=== PATIENT | female | born 1955 | race Hispanic/Latino ===

== ENCOUNTER 2019-01-28 14:55 | Inpatient (IN) | payer OTHER ==
[~2019-01-28] VITALS: Ht 154.9 cm; Wt 96.2 kg
--- NOTE | 2019-01-28 00:10 | NUR ---
PATIENT RECIEVED TO FLOOR WITH BP OF 201/86 AND COMPLAINING OF PAIN TO UPPER LIP AND HEADACHE. ADMINISTERED 2MG OF MORPHINE PER PRN ORDER AND AFTER 20 MINUTES BP STILL NOT DECEREASED CALLED DR FAJARDO TO GET PRN ORDER FOR BP MED, ADMINISTERED HYDRALAZINE 5MG AT 0105 AND BP DECREASED TO 191/81. PRN ORDER FOR Q1H MEDICATION, WILL CONTINUE TO MONITOR BP.
[~2019-01-28 14:55] MED LIST: AMITRIPTYLINE H25 MG PO; ATROVENT HFA12.9 GM INH; FUROSEMIDE40 MG PO; HUMALOG100 UNIT/1 SUBD; Invokana PO; LANTUS 3ML100 UNITS/ SQ; LISINOPRIL10 MG PO; LOVASTATIN40 MG PO; LYRICA75 MG PO; METFORMIN HCL500 MG PO; NIFEDIPINE ER30 M1 PO; NOVOLOG MI100 UNIT/1 SQ; TROUJEO SQ
--- OUTSIDE RECORDS SUMMARY | 2019-01-28 14:58 | XMS REPORT ---
[facility] Address Unknown Phone Unavailable Care Team Providers Care Attorney Recruiter Name Role Phone Unavailable Unavailable Payers Payer Name Policy Type Policy Number Effective Date Expiration Date Problems This patient has no known problems. Allergies, Adverse Reactions, Alerts Allergy Name Allergy Type Status Severity Reaction(s) Onset Date Inactive Date Treating Clinician Comments No Known Allergies DA Active U 2018-06-16 00:00:00 atorvastatin DA Active MO 2015-06-10 00:00:00 Medications This patient has no known medications.
[2019-01-28] MEDS ORDERED: SODIUM CHLORIDE 0.9% 1000ML 1,000 ML IV STA (18:14)
[2019-01-28] MEDS ORDERED: MORPHINE SULFATE 2 MG/ML SYR 1ML IV STA ×2 (18:14→21:54)
[2019-01-28] MEDS ORDERED: SODIUM CHLORIDE 0.9% 1000ML 1,000 ML IV SCH (18:15)
[2019-01-28] MEDS ORDERED: MORPHINE SULFATE INJ 4 MG/ML INJ 1ML IV ONE ×2 (18:30→22:00)
[2019-01-28] MEDS ORDERED: VANCOMYCIN 1GM/NS 250 ML 250 ML IV ONE (18:30)
[2019-01-28 18:50] LABS: BASOPHILS # (AUTO) 0.1 (0.0-0.1); BASOPHILS % 0.4 % (0.0-1.0); EOSINOPHILS # (AUTO) 0.1 (0.0-0.4); EOSINOPHILS % 0.7 % (0.0-6.0); HEMATOCRIT 38.9 % (34.2-44.1); HEMOGLOBIN 12.1 g/dL (12.0-16.0); LYMPHOCYTES # (AUTO) 1.6 (1.0-3.2); LYMPHOCYTES % 10.8 % (18.0-39.1); MEAN CORPUSCULAR HGB CONC 31.1 g/dL (31-35); MEAN CORPUSCULAR VOLUME 83.5 fL (81-99); MONOCYTES # (AUTO) 0.9 (0.2-0.8); MONOCYTES % 5.9 % (4.4-11.3); NEUTROPHILS # (AUTO) 12.2 (2.1-6.9); NEUTROPHILS % 81.7 % (38.7-80.0); PLATELET COUNT 375 x10e3/uL (140-360); RED BLOOD COUNT 4.66 x10e6/uL (3.6-5.1); RED CELL DISTRIBUTION WIDTH 15.9 % (11.7-14.4)
[2019-01-28 18:57] LABS: INR 1.06; PROTHROMBIN TIME 14.3 seconds (11.9-14.5)
[2019-01-28 18:58] LABS: PARTIAL THROMBOPLASTIN TIME 38.7 seconds (23.8-35.5)
[2019-01-28 19:05] LABS: ALBUMIN 2.2 g/dL (3.5-5.0); ALBUMIN/GLOBULIN RATIO 0.4 (0.8-2.0); ANION GAP 15.8 mmol/L (8-16); CALCIUM 9.9 mg/dL (8.4-10.2); CREATININE, SERUM 2.36 mg/dL (0.57-1.11); MAGNESIUM 1.8 MG/DL (1.3-2.1); POTASSIUM 4.8 mmol/L (3.5-5.1)
[2019-01-28 19:12] LABS: CREATINE KINASE MB 1.6 ng/mL (0-5.0)
--- NOTE | 2019-01-28 19:43 | Diagnostic Imaging Report ---
EXAMINATION: Head CT without contrast. HISTORY:Dizziness, status post fall. COMPARISON:None. TECHNIQUE: Multidetector axial images were obtained from the foramen magnum to the vertex without contrast. The images were reconstructed using brain and bone algorithms. Thin section brain images were reformatted into coronal and sagittal planes. Dose modulation, iterative reconstruction, and/or weight based adjustment of the mA/kV was utilized to reduce the radiation dose to as low as reasonably achievable. Intravenous contrast: None IMAGE QUALITY: Acceptable. FINDINGS: Skull/scalp: No lytic or blastic. lesions. No surgical changes. Parenchyma: Nonspecific few, scattered supratentorial white matter hypodensity are likely related to small vessel ischemic changes. No acute hemorrhage, mass or acute major vascular territorial infarct. Arteries: No density suggestive of thrombosis. Atherosclerotic calcification in bilateral carotid siphon. Dural sinuses: No abnormal density suggestive of thrombosis. Ventricles: No hydrocephalus or displacement. Extra-axial spaces: No abnormal density. Brain volume: Normal for age. Craniocervical junction: No mass, Chiari malformation, or basilar invagination. Sella: No mass. Paranasal/mastoid sinuses: Moderate mucosal thickening in left sphenoid sinus. IMPRESSION: 1. No acute intracranial abnormality. 2. Mild supratentorial white matter microvascular ischemic changes. Signed by: Dr. Senia Mcginnis M.D. on 01/28/2019 7:40 PM
--- NOTE | 2019-01-28 19:49 | Diagnostic Imaging Report ---
History: Dizziness, status post fall. Comparison studies: None Technique: Axial images were obtained through the cervical region.. Coronal and sagittal images reconstructed from the axial data. Dose modulation, iterative reconstruction, and/or weight based adjustment of the mA/kV was utilized to reduce the radiation dose to as low as reasonably achievable. Intravenous contrast: None Findings: Fractures: None. Soft tissue injuries: None. Atlantoaxial articulation: Intact. Alignment: Loss of normal cervical lordosis is either positional or due to muscle spasm. No scoliosis. 1.5 mm grade 1 anterolisthesis at level C5-C6. Cervicomedullary junction: No abnormalities. The foramen magnum is patent. Soft tissues: No abnormalities. Vertebrae: No fractures, infection or neoplasm. Degenerative changes: C3-C4: Mild degenerative disc disease. Posterior disc osteophyte complex results in mild canal stenosis. Mild left foraminal stenosis due to facet and uncovertebral arthrosis. C4-C5: Mild bilateral foraminal stenosis due to uncovertebral arthrosis. C5-C6: Mild right foraminal stenosis due to uncovertebral arthrosis. C6-C7: Mild to moderate degenerative disc disease. Moderate left foraminal stenosis due to facet and uncovertebral arthrosis. IMPRESSION: 1. No acute cervical spine fracture or dislocation. Loss of normal cervical lordosis is either positional or due to muscle spasm. 2. Ligament, spinal cord and or vascular abnormalities cannot be excluded on the basis of this examination. 3. Cervical spondylosis as detailed above. Signed by: Dr. Senia Mcginnis M.D. on 01/28/2019 7:45 PM
--- NOTE | 2019-01-28 19:52 | Diagnostic Imaging Report ---
EXAMINATION: CHEST SINGLE (PORTABLE) INDICATION: Fall. Trauma ^ERMD ORDER ^[id number] ^1900 ^Y COMPARISON: None FINDINGS: TUBES and LINES: None. LUNGS: Lungs are well inflated. Lungs are clear. There is no evidence of pneumonia or pulmonary edema. PLEURA: No pleural effusion or pneumothorax. HEART AND MEDIASTINUM: The cardiomediastinal silhouette is unremarkable. BONES AND SOFT TISSUES: No acute osseous lesion. Soft tissues are unremarkable. UPPER ABDOMEN: No free air under the diaphragm. IMPRESSION: No acute thoracic abnormality. Signed by: Dr. Pb Boggs M.D. on 01/28/2019 7:48 PM
--- NOTE | 2019-01-28 19:57 | Diagnostic Imaging Report ---
History:Dizziness, status post fall. Comparison studies: None Technique: Axial images were obtained through the maxillofacial region. Coronal and sagittal images reconstructed from the axial data. Dose modulation, iterative reconstruction, and/or weight based adjustment of the mA/kV was utilized to reduce the radiation dose to as low as reasonably achievable. Intravenous contrast: None Findings: Soft tissues: Moderate soft tissue swelling in the premaxillary region and the upper lip. No discrete hypodense fluid collection. Punctate radiopaque density in the left paramedian aspect of lower lip may represent foreign body/debris or calcification in appropriate clinical setting. Bones: No fractures or bony abnormalities. Multiple missing teeth with multifocal periapical lucency and periapical osseous disruption, the activity of which is to be determined clinically. No discrete fracture of the teeth. Orbits: Globes: Intact Extra or intraconal abnormalities: None. Paranasal sinuses: Moderate mucosal thickening with an air-fluid level in left sphenoid sinus. IMPRESSION: 1. Moderate premaxillary region and upper lip soft tissue swelling. 2. Punctate radiopaque foreign body/debris or calcification in the lower lip. 3. No acute fracture. Signed by: Dr. Senia Mcginnis M.D. on 01/28/2019 7:54 PM
[2019-01-28 20:13] LABS: BILIRUBIN,URINE SMALL (NEGATIVE); CLARITY,URINE CLOUDY (CLEAR); COLOR,URINE YELLOW (YELLOW); KETONES,URINE TRACE (NEGATIVE); LEUKOCYTE ESTERASE ,URINE NEGATIVE (NEGATIVE); NITRITE,URINE NEGATIVE (NEGATIVE); URINE UROBILINOGEN 0.2 mg/dL (0.2 - 1)
[2019-01-28 20:19] LABS: PROTEIN,URINE DIPSTICK 2+ (NEGATIVE)
[2019-01-28 20:24] LABS: AMORPHOUS SEDIMENT,URINE MODERATE (FEW); BACTERIA,URINE MODERATE /HPF; EPITHELIAL CELLS,URINE FEW /LPF
[2019-01-28 20:31] LABS: B-TYPE NATRIURETIC PEPTIDE2 134.1 pg/mL (0-100)
[2019-01-28] MEDS ORDERED: CLONIDINE HCL0.2 MG PO (21:45)
[2019-01-28] MEDS ORDERED: METOPROLOL TART50 MG PO (21:45)
[2019-01-28] MEDS ORDERED: LEVOTHYROXINE50 MCG PO (21:45)
[2019-01-28] MEDS ORDERED: GABAPENTIN400 MG PO (21:45)
[2019-01-28] MEDS ORDERED: FUROSEMIDE40 MG PO (21:47)
[2019-01-28] MEDS: CLONIDINE HCL 0.2 MG TAB PO SCH (21:57)
[2019-01-28] MEDS: METOPROLOL TARTRATE 50 MG TAB PO SCH (21:57)
[2019-01-28] MEDS ORDERED: DEXTROSE 50% SYRINGE 50 ML IV PRN (22:30)
[2019-01-28] MEDS ORDERED: ONDANSETRON HCL INJ 2MG/ML 2ML 2 MG/ML VIAL IV PRN (22:30)
[2019-01-28] MEDS: SODIUM CHLORIDE 0.9% 1000ML 1,000 ML IV SCH (23:37)
[2019-01-29] VITALS (11 sets, daily range): BP systolic 116–189; BP diastolic 50–89
[2019-01-29] MEDS: MORPHINE SULFATE INJ 4 MG/ML INJ 1ML IV PRN ×2 (00:15→14:29)
[2019-01-29] MEDS ORDERED: HYDRALAZINE HCL 20 MG/ML VIAL IV STA (00:41)
[2019-01-29] MEDS ORDERED: HYDRALAZINE HCL 20 MG/ML VIAL ONE (00:47)
[2019-01-29] MEDS: SODIUM CHLORIDE 0.9% 1000ML 1,000 ML IV SCH ×3 (01:02→22:28)
[2019-01-29 05:35] LABS: CREATINE KINASE MB 1.9 ng/mL (0-5.0)
[2019-01-29] MEDS: CLONIDINE HCL 0.2 MG TAB PO SCH ×3 (08:28→20:42)
[2019-01-29] MEDS: METOPROLOL TARTRATE 50 MG TAB PO SCH ×2 (08:28→17:32)
[2019-01-29] MEDS: INSULIN REGULAR, HUMAN 100 UNIT/1 ML 3ML VIAL SQ SCH ×4 (08:29→20:42)
--- NOTE | 2019-01-29 13:02 | History and Physical ---
REPORT TITLE: Admitting History and Physical REASON FOR ADMISSION: Ms. Garay is a complex 64-year-old obese, diabetic, who presents to the emergency room with a complaint of facial pain and swelling. HISTORY OF PRESENT ILLNESS: The patient reports she fell down 5 days ago and remembers striking her face on the floor. She reports the fingerstick blood sugar at that time was 498. She denies any chest pain, palpitations, and does not believe she has had elena syncope at any time. PAST MEDICAL HISTORY: Significant for longstanding diabetes for approximately 15 years. She has taken oral medications and more recently injection. She was hospitalized at [facility] in 2016 with necrotic right third toe. She thinks it was insect bite, it was amputated with no further problems. She has had long-standing diabetic neuropathy. She had cholecystectomy in 2012 and endoscopies in 2017. MEDICATIONS: Recent home medications include Toujeo 65 units each morning, metoprolol tartrate 50 mg b.i.d., lovastatin 40 mg daily, lisinopril 40 mg daily, levothyroxine 50 mcg daily, NovoLog 70/30 15 units twice a day, gabapentin 400 mg b.i.d., furosemide 40 mg daily, clonidine 0.2 mg t.i.d., and amitriptyline 25 mg daily. 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 PHYSICAL EXAMINATION: GENERAL: At this time shows a pleasant obese woman, who is about 5 feet 1 inch tall, weighing 212 pounds. VITAL SIGNS: Her current blood pressure 165/80. HEAD, EYES, EARS, NOSE, and throat: Shows swelling of the upper lip with minimal erythema. NECK: Thick. No bruits. THORAX: Heart sounds S1, S2 are equal. No murmurs. LUNGS: Clear. ABDOMEN: Markedly protuberant. Normal bowel sounds. Nontender. EXTREMITIES: She has no cyanosis, clubbing, or edema. The right foot is missing the middle toe, but all the other toes are unremarkable as is the left foot. ADMITTING LABORATORY STUDIES: Show sodium 134, potassium 4.8, chloride 100, bicarb 23, BUN 34, creatinine 2.36, and glucose 306. White count 14.9. ASSESSMENT: 1. Edema and cellulitis of the face. 2. Uncontrolled diabetes. 3. Renal insufficiency, some component could be dehydration. 4. Morbid obesity. PLAN: The patient has already been given one dose of vancomycin, and we will continue IV fluids for dehydration component. We will ask for Infectious Disease evaluation and case management assistance in helping her to get medications at reasonable cost for her. Further management based on clinical course. MD ALEJANDRO Mancilla/MODL /[id number] cc: MD Oli Singer MD
--- NOTE | 2019-01-29 14:10 | NUR ---
PAST MEDICAL HISTORY: Significant for longstanding diabetes for approximately 15 years. She has taken oral medications and more recently injection. She was hospitalized at [facility] in 2016 with necrotic right third toe. She thinks it was insect bite, it was amputated with no further problems. She has had long-standing diabetic neuropathy. She had cholecystectomy in 2013 and endoscopies in 2017. MEDICATIONS: Recent home medications include Toujeo 65 units each morning, metoprolol tartrate 50 mg b.i.d., lovastatin 40 mg daily, lisinopril 40 mg daily, levothyroxine 50 mcg daily, NovoLog 70/30 15 units twice a day, gabapentin 400 mg b.i.d., furosemide 40 mg daily, clonidine 0.2 mg t.i.d., and amitriptyline 25 mg daily. 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 [id number]
[2019-01-29] MEDS: FUROSEMIDE 40 MG TAB PO SCH (14:27)
[2019-01-29] MEDS: AMITRIPTYLINE HCL 25 MG TAB PO SCH (14:27)
[2019-01-29 14:30] LABS: CREATINE KINASE MB 2.1 ng/mL (0-5.0)
--- NOTE | 2019-01-29 15:22 | History and Physical ---
REASON FOR CONSULTATION: Upper lip abscess. HISTORY OF PRESENT ILLNESS: This patient is very pleasant 64-year-old female. She fell about a week ago and she had a cut on her upper lip. The patient who does have history of diabetes mellitus and obesity. She does have swelling in her lip with pain, feeling feverish, the patient in the emergency room where she was admitted and evaluated. PAST MEDICAL HISTORY: Diabetes mellitus, obesity, hypertension, hypothyroidism, and neuropathy. PAST SURGICAL HISTORY: She had necrotic right 3rd toe amputated, cholecystectomy in 2013, endoscopy in 2017. ALLERGIES: NKA. SOCIAL HISTORY: There is no smoking, drug abuse, or alcohol abuse. 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 HOME MEDICATIONS: She is on: 1. Lisinopril. 2. Lovastatin. 3. Insulin. 4. Clonidine. 5. Amitriptyline. REVIEW OF SYSTEMS: HEENT: There is no headache, visual changes, or hearing changes. GI: There is no nausea, no vomiting, no diarrhea. CARDIAC: There is no arrhythmia. NEURO: No seizure activity. SKIN: There is no rash. Except for the pain in her mouth, she denies any. PHYSICAL EXAMINATION: GENERAL: She is currently alert, oriented, does not seem to be in acute distress. VITAL SIGNS: Stable. Currently afebrile. HEENT: Normocephalic. Not icteric. She did have upper lip swelling. There is some ulcers noted on the anterior aspect of her mouth. NECK: Supple. No JVD. No lymphadenopathy. No thyromegaly. CHEST: Clear bilateral. HEART: S1, S2. No S3, S4 or murmur. ABDOMEN: Soft. Bowel sounds present. EXTREMITIES: No edema. SKIN: No rash. IMPRESSION: 1. Upper lip abscess with infection. The patient with diabetes mellitus. 2. Diabetes mellitus. 3. Obesity. PLAN: We are concerned about oral roberth, infection. We will recommend to put her on Zosyn. May need ENT evaluation. May need I and D. We will follow with you. Discussed with the patient. MD GALE Singer/ISRAEL /[id number]
--- NOTE | 2019-01-29 16:38 | NUR ---
PT STATES SHE GOES TO [facility] IN [place] FOR HER DIABETIC MEDICATIONS CM CALLED AND SPOKE WITH ALEJANDRA AT [facility] WHO STATES PT COMES THERE FOR HER MEDICATIONS AND DR BERRY IS HER PCP ACCORDING TO PT RECORDS PT HAS NOT BEEN THERE SINCE JULY OF 2018
[2019-01-29] MEDS: GABAPENTIN 400 MG CAP PO SCH (17:32)
[2019-01-29] MEDS: PIPER-TAZ 3.375 GM 50 ML IV SCH (17:32)
[2019-01-29] MEDS: INSULIN ASPART 70/30 100 UNITS/ML VIAL SC SCH (17:33)
[2019-01-29] MEDS: SIMVASTATIN 20 MG TAB PO SCH (20:42)
--- NOTE | 2019-01-29 21:22 | NUR ---
Paged to inform lab results, waiting for MD's call back.
--- NOTE | 2019-01-29 22:35 | NUR ---
Paged to inform lab results, waiting for MD's call back at this time.
--- NOTE | 2019-01-29 22:48 | Consultation ---
DATE OF CONSULTATION: 01/29/2019 HISTORY OF PRESENT ILLNESS: I was kindly asked to see this 64-year-old woman for evaluation of "lip abscess." The patient presented with a history of falling face forward onto the floor and suffering a laceration in her upper lip from her tooth. She reports she felt the tooth moved and the tooth continues to be sore. The patient had swelling of the upper lip, which progressed to swelling of both upper and lower lips as well as pain radiating into her face. She reports since admission she has had no significant improvement in the pain and swelling. PAST MEDICAL HISTORY: Pertinent for diabetes and obesity. PAST SURGICAL HISTORY: Reviewed in detail in the chart. PHYSICAL EXAMINATION: The tympanic membranes and external auditory canals were unremarkable. Intranasal examination was unremarkable. She had diffuse swelling below the nose. The upper lip had a laceration next to the incisor tooth and there was generalized swelling of the upper lip, but no areas of fluctuance were noted. The lower lip was also swollen. She had poor dentition with multiple dental caries. There was no palpable cervical adenopathy. LABORATORY DATA: Initial laboratory evaluation was reviewed in detail is pertinent for glucose of 306 and white count of 14.9. ASSESSMENT: 1. Posttraumatic lip cellulitis with open laceration from carious tooth with no areas of fluctuance on examination. 2. Diabetes mellitus. 3. Obesity. PLAN: Continue IV antibiotic therapy with consideration of incision and drainage based on clinical course. Thank you very much. MD DEONTE Davidson/ISRAEL /[id number]
[2019-01-30] VITALS (10 sets, daily range): BP systolic 112–162; BP diastolic 50–97
[2019-01-30] MEDS: PIPER-TAZ 3.375 GM 50 ML IV SCH ×2 (00:40→05:45)
--- NOTE | 2019-01-30 01:10 | NUR ---
Started new IV on left AC 20g. Will continue to monitor.
[2019-01-30 05:24] LABS: BASOPHILS % 0.2 % (0.0-1.0); EOSINOPHILS # (AUTO) 0.3 (0.0-0.4); EOSINOPHILS % 2.6 % (0.0-6.0); HEMATOCRIT 29.2 % (34.2-44.1); HEMOGLOBIN 8.9 g/dL (12.0-16.0); LYMPHOCYTES % 7.6 % (18.0-39.1); MEAN CORPUSCULAR HEMOGLOBIN 26.3 pg (28-32); MEAN CORPUSCULAR HGB CONC 30.5 g/dL (31-35); MEAN CORPUSCULAR VOLUME 86.1 fL (81-99); MONOCYTES # (AUTO) 0.9 (0.2-0.8); MONOCYTES % 7.1 % (4.4-11.3); NEUTROPHILS # (AUTO) 10.3 (2.1-6.9); NEUTROPHILS % 82.1 % (38.7-80.0); PLATELET COUNT 293 x10e3/uL (140-360); RED BLOOD COUNT 3.39 x10e6/uL (3.6-5.1)
[2019-01-30] MEDS: LEVOTHYROXINE SODIUM 50 MCG TAB PO SCH (05:45)
[2019-01-30 06:05] LABS: ANION GAP 10.4 mmol/L (8-16); CALCIUM 8.5 mg/dL (8.4-10.2); CHOL/HDL RATIO 5.4 (3.0-3.6); CREATININE, SERUM 2.29 mg/dL (0.57-1.11); POTASSIUM 4.4 mmol/L (3.5-5.1)
--- NOTE | 2019-01-30 06:42 | NUR ---
Paged to inform about lab results. Waiting for MD'S call back at this time.
--- NOTE | 2019-01-30 07:00 | NUR ---
Pt received resting in bed. Alert and oriented x4 with facial swelling noted. Oriented to staff and surroundings. Encouraged to press call drake if help needed. Call drake within reach. Will monitor
[2019-01-30] MEDS: INSULIN REGULAR, HUMAN 100 UNIT/1 ML 3ML VIAL SQ SCH ×2 (07:30→11:52)
--- NOTE | 2019-01-30 08:25 | NUR ---
All meds given as ordered. Assisted to bathroom. Emotional support given. Will monitor
[2019-01-30] MEDS: SODIUM CHLORIDE 0.9% 1000ML 1,000 ML IV SCH ×3 (08:45→22:21)
[2019-01-30] MEDS: GABAPENTIN 400 MG CAP PO SCH (08:46)
[2019-01-30] MEDS: AMITRIPTYLINE HCL 25 MG TAB PO SCH (08:46)
[2019-01-30] MEDS: METOPROLOL TARTRATE 50 MG TAB PO SCH ×3 (08:46→17:36)
[2019-01-30] MEDS: CLONIDINE HCL 0.2 MG TAB PO SCH ×4 (08:46→21:11)
[2019-01-30] MEDS: FUROSEMIDE 40 MG TAB PO SCH (08:46)
[2019-01-30] MEDS ORDERED: INSULIN GLARGINE 100 UNITS/ML VIAL SQ SCH (09:00)
[2019-01-30] MEDS ORDERED: LISINOPRIL 10 MG TAB PO SCH (09:00)
[2019-01-30] MEDS ORDERED: VANCOMYCIN 1GM/NS 250 ML 250 ML IV SCH (09:00)
[2019-01-30] MEDS: INSULIN ASPART 70/30 100 UNITS/ML VIAL SC SCH (09:13)
[2019-01-30] MEDS ORDERED: VANCOMYCIN HCL 1 GM in SODIUM CHLORIDE 0.9% 250ML 250 ML IV SCH (10:45)
[2019-01-30] MEDS: MORPHINE SULFATE INJ 4 MG/ML INJ 1ML IV PRN (11:51)
[2019-01-30] MEDS: METRONIDAZOLE 500MG/NS 100ML 100 ML IV SCH ×2 (11:51→21:20)
[2019-01-30] MEDS: CEFTRIAXONE SOD 2 GM/NS 100 ML 100 ML IV SCH (11:51)
[2019-01-30] MEDS: ACETAMINOPHEN 325 MG TAB PO PRN ×2 (12:24→19:56)
--- NOTE | 2019-01-30 12:33 | NUR ---
Temp orally 101.9F. Dr. Carver paged stat. Tylenol 650mg PO given. Pt is very restless. sewer and drain technician at bedside. 2L NC in place. Vitals stable. Will monitor
--- NOTE | 2019-01-30 12:43 | NUR ---
Dr. Torres notified regarding Temp 101.9. Tylenol given already. Blood culture ordered. Pt is confused stating that there is a kid in the bathroom of the dentist office. Will perform frequent safety checks
--- NOTE | 2019-01-30 13:04 | NUR ---
Received a call hummel from Dr. Carver. Advised of pt's confusion & Temp. CT head ordered Stat. Charge nurse at bedside. Will monitor
--- NOTE | 2019-01-30 13:48 | NUR ---
T 101.6 p81 sat 100% r 23 BP 123/50 finger stick 116. lactic acid 10.9. Pt is very confused. Bed alarm not working. Pt assisted to bedside commode, and bed changed. Bed alarm turned on. Pt oriented to staff and surroundings. Dr. Garg assessed pt. Call drake within reach. Will monitor
--- NOTE | 2019-01-30 13:58 | NUR ---
Pt left for CT head
--- NOTE | 2019-01-30 14:21 | NUR ---
Pt returned from CT head. Oriented to staff and surroundings. Bed alarm on. Will monitor
--- NOTE | 2019-01-30 14:34 | Diagnostic Imaging Report ---
CT BRAIN WO HISTORY: Trauma COMPARISON: Head CT 01/28/2019 TECHNIQUE: Noncontrast axial scans were obtained from skull base to the vertex. Coronal and sagittal reconstructions obtained from the axial data. One or more of the following dose reduction techniques were used: Automated exposure control, adjustment of the mA and/or kV according to patient size, and/or utilization of iterative reconstruction technique. DISCUSSION: Scalp/Skull: Unremarkable. Brain sulci: Appropriate for patient's age. Ventricles: Normal in size and configuration. No hydrocephalus. Extra-axial spaces: No masses or fluid collections. Parenchyma: Mild periventricular white matter hypodensities are likely chronic microvascular ischemic changes. Otherwise, no mass, hemorrhage, or large vascular territory acute infarct. Dural sinuses: No abnormal densities. Sellar/Suprasellar region: Intact. Skull base: Intact. Incidental findings: Carotid siphon calcifications are seen. Mild left sphenoid sinus mucosal thickening is also present. IMPRESSION: 1. No acute intracranial abnormalities. 2. Mild supratentorial chronic microvascular ischemic change. Signed by: Dr. Kevin Novoa M.D. on 01/30/2019 2:30 PM
--- NOTE | 2019-01-30 14:37 | Consultation ---
DATE OF CONSULTATION: 01/30/2019 HISTORY: This is a 64-year-old white female, who has past history of type 2 diabetes, increased BMI, hypothyroidism, peripheral neuropathy, had a necrotic right 3rd toe amputation and prior cholecystectomy, who apparently fell and had a laceration on the buccal mucosa side of upper lip, the upper lip is obviously swollen. She is right now somewhat lethargic and drowsy, she just received morphine for pain a little while ago. She is currently sitting up, nurse is by her bedside. She has been seen by Infectious Disease and ENT. Has a posttraumatic lip cellulitis with open laceration and there is a possibility she may need I and D, Dr. Medrano is following. Renal has been consulted for worsening kidney function. Labs show sodium 136, potassium 4.4, chloride 108, bicarbonate 22 with a creatinine 2.29, blood sugar 140. Has a hemoglobin A1c of 12.9. Lactic acid 10.9. ALLERGIES: NO APPARENT DRUG ALLERGIES. CURRENT MEDICATIONS: The patient was on lisinopril, simvastatin, Neurontin, amitriptyline, insulin, hydralazine p.r.n., furosemide 40 mg daily. Vancomycin, she is on 1 g IV q.24, previous p.o. 1 g q.12 h. Also receiving normal saline 125 mL an hour. Started on ceftriaxone 2 g IV q.24 h. PHYSICAL EXAMINATION: GENERAL: The patient is awake, alert, sitting up. VITAL SIGNS: Blood pressure of 135/53, pulse rate 81, afebrile, oxygen saturation 99% on 2 L nasal cannula. HEAD AND NECK: No icterus noted. Significantly swollen upper lip. Neck veins are flat. LUNGS: Relatively clear. HEART: S1, S2 audible. ABDOMEN: Otherwise soft, obese, nontender. EXTREMITIES: Lower extremity examination shows no edema. IMPRESSION AND PLAN: Acute kidney injury in a lady with fall, upper lip cellulitis on antibiotics with history of hypertension, poorly controlled diabetes, back in 2016 had a baseline creatinine of 1.06. Plan on working up. First of all continuing with normal saline at the moment. We will discontinue amitriptyline, Neurontin, Lasix, lisinopril given her mental status and kidney function. We will order vancomycin random level, strongly recommend changing vancomycin to q.36 hours or q.48 hours. Kidney ultrasound, urine electrolytes, urine protein creatinine ratio. Discussed with bedside RN. Discussed with the patient. MD PARI Lambert/ISRAEL /[id number]
[2019-01-30 14:58] LABS: BILIRUBIN,URINE NEGATIVE (NEGATIVE); CLARITY,URINE SL CLOUDY (CLEAR); COLOR,URINE YELLOW (YELLOW); KETONES,URINE NEGATIVE (NEGATIVE); LEUKOCYTE ESTERASE ,URINE NEGATIVE (NEGATIVE); NITRITE,URINE NEGATIVE (NEGATIVE); URINE UROBILINOGEN 0.2 mg/dL (0.2 - 1)
[2019-01-30 14:59] LABS: PROTEIN,URINE DIPSTICK 3+ (NEGATIVE)
--- NOTE | 2019-01-30 15:00 | NUR ---
T 100.2 p 80 sat 97% R26 BP 112/97. Pt is currently alert and oriented x3. Emotional support given. Call drake within reach. Will monitor
[2019-01-30 15:10] LABS: BACTERIA,URINE FEW /HPF; EPITHELIAL CELLS,URINE MANY /LPF
[2019-01-30 15:31] LABS: CREATININE,URINE RANDOM 62.15 mg/dL (47-110)
[2019-01-30] MEDS: INSULIN LISPRO 100 UNIT/1 ML 3ML VIAL SQ SCH ×3 (15:53→20:12)
[2019-01-30 16:00] LABS: FREE T4 (FREE THYROXINE) 0.79 ng/dL (0.8-1.8); THYROID STIMULATING HORMONE 2.604 uIU/mL (0.350-4.940)
[2019-01-30 16:14] LABS: TOTAL PROTEIN, URINE 461.7 mg/dL (1-14)
--- NOTE | 2019-01-30 16:43 | Diagnostic Imaging Report ---
Renal ultrasound, 01/30/2019. History: MATHEW. Comparison: Ultrasound abdomen 06/11/2018. Discussion: Transverse and longitudinal images of the kidneys were obtained demonstrating normal renal sizes and echogenicities. There is no evidence of hydronephrosis, mass, or renal calculus. The right kidney measures 11.3 cm and the left kidney measures 12.6 cm in length. Renal cortex measures 1.7 and 1.8 cm respectively. The urinary bladder is unremarkable. Bladder volume measures 102 mL. Right ureteral jet visualized. There is no evidence of free fluid. IMPRESSION: Normal renal ultrasound. Signed by: Po Ross on 01/30/2019 4:40 PM
--- NOTE | 2019-01-30 16:53 | NUR ---
Nutrition Screen Note RD Recommendation for Physician: -Continue current diet as ordered Plan of Care: RD following, monitoring for tolerance and adequacy, diet education Nutrition reason for involvement: MD Consult diabetic teaching Primary Diagnose(s): facial cellulitis s/p fall, hyperglycemia PMH: DM, diabetic neuropathy Ht: 61in Wt: 212lb BMI: 40.1kg/m2 IBW: 105lb +/- 10% RD Assessment: (01/30) Chart reviewed. Labs and meds reviewed. 64yo F, who was admitted for facial swelling. HbA1c at 12.5%. BG was elevated at 306 upon admission. Visited pt in the room. Pt reported eating/ drinking well prior and during hospital stay. No complains of nausea or vomiting. Normal BM. Pt denied any chewing or swallowing difficulty. However, pt requested for soft texture foods due to the swelling on her lips; will communicate with kitchen. Weight has been stable. Pt reported long standing history of diabetes. Pt is aware that her HbA1c is elevated. Her son and daughter will be preparing foods for her once discharged. RD provided education and handouts on diabetic diet. All questions have been answered. Current Diet: ADA 1800 Malnutrition Evaluation (01/30) The patient does not meet criteria for a specified degree of malnutrition at this time. Will re-evaluate at follow-up as appropriate. Diet Education Needs Assessment: Diet education indicated, pt is agreeable. Learner(s): pt Time spent: 20minutes Barriers: No barriers identified. Cultural/Language Modifications: No cultural/language modifications noted. Pt speaks German. Readiness: Acceptance Method: Handouts, explanation Topics: Carbohydrate exchanges, Carbohydrate counting handouts, Reading the nutrition label, meal planning tips, exercise tips, servings/portion sizes Understanding/Compliance: Expect fair understanding/compliance from pt. Will benefit from reinforcement. All questions have been answered. Nutrition Care Level: low Signed: Denita Weems, MS, RD, LD
--- NOTE | 2019-01-30 17:08 | Consultation ---
DATE OF CONSULTATION: 01/30/2019 Endocrine Consultation The patient of Dr. Torres. Thank you very much for referring this patient. HISTORY OF PRESENT ILLNESS: This is a 64-year-old lady who is referred to me for evaluation of uncontrolled diabetes mellitus. The patient reportedly is a known diabetic for almost 15 years and she takes Lantus insulin 65 units at bedtime and 70/30 units 20-30 twice a day. She came to the hospital with history of significant swelling of the face and cellulitis of the face associated with high-grade fever and chills. She also has history of chronic renal insufficiency, hypertension, and obesity. The patient is presently on IV antibiotics and she is also on hydralazine for high blood pressure. She also has a history of hypothyroidism for which she is on Synthroid 0.05 mg once daily. PHYSICAL EXAMINATION: GENERAL: Today, the patient is alert, awake, little bit apprehensive. She is moderately overweight. She has significant facial cellulitis with swelling of the lip and the side of the face. VITAL SIGNS: Her heart rate is around 70, blood pressure is 130/80 mmHg. HEENT: Essentially unremarkable. Thyroid is palpable. Clinically, she is near euthyroid. CHEST: Bilateral vesicular breathing. She has mild bronchospasm. CARDIAC: First and second heart sounds. There is no 3rd or 4th heart sounds with systolic grade 2/6. EXTREMITIES: The patient has evidence of diabetic sensory neuropathy in both lower extremities. Her blood sugars have been fluctuating between 110 to 250. Her hemoglobin A1c is significantly elevated at 12.5. CLINICAL IMPRESSION: Diabetes mellitus type 2, uncontrolled with complication, hyperlipidemia, cellulitis of the face, chronic renal insufficiency, and hypertension. PLAN: At this time is to cut down her Lantus at bedtime and also put her on Humalog with each meal. Thank you for referring this patient. I will be following this patient with you. MD PACHECO Manriquez/NASL /[id number] EVIE
--- NOTE | 2019-01-30 17:48 | NUR ---
Temp 98.2 BP 162/77 p89. Handoff given to RN covering room 200. Family aware of transfer.
--- NOTE | 2019-01-30 18:00 | NUR ---
PT TO THE FLOOR AT THIS TIME FROM IMCU. PT DENIES NEEDS AT THIS TIME. DAUGHTER AT BEDSIDE.
[2019-01-30] MEDS ORDERED: DIPHENHYDRAMINE HCL 25 MG CAP PO PRN (20:30)
[2019-01-30] MEDS: SIMVASTATIN 20 MG TAB PO SCH (21:00)
[2019-01-31] VITALS (10 sets, daily range): BP systolic 128–217; BP diastolic 58–94
[2019-01-31 04:48] LABS: BASOPHILS % 0.2 % (0.0-1.0); EOSINOPHILS # (AUTO) 0.1 (0.0-0.4); EOSINOPHILS % 1.2 % (0.0-6.0); HEMATOCRIT 35.8 % (34.2-44.1); HEMOGLOBIN 10.8 g/dL (12.0-16.0); LYMPHOCYTES # (AUTO) 0.5 (1.0-3.2); LYMPHOCYTES % 4.7 % (18.0-39.1); MEAN CORPUSCULAR HEMOGLOBIN 25.8 pg (28-32); MEAN CORPUSCULAR HGB CONC 30.2 g/dL (31-35); MEAN CORPUSCULAR VOLUME 85.6 fL (81-99); MONOCYTES # (AUTO) 0.5 (0.2-0.8); MONOCYTES % 4.1 % (4.4-11.3); NEUTROPHILS # (AUTO) 9.7 (2.1-6.9); PLATELET COUNT 362 x10e3/uL (140-360); RED BLOOD COUNT 4.18 x10e6/uL (3.6-5.1); RED CELL DISTRIBUTION WIDTH 15.8 % (11.7-14.4); RETICULOCYTE % 0.9 % (0.8-2.2)
[2019-01-31 05:12] LABS: ALBUMIN 1.8 g/dL (3.5-5.0); ALBUMIN/GLOBULIN RATIO 0.3 (0.8-2.0); ANION GAP 15.8 mmol/L (8-16); CALCIUM 9.3 mg/dL (8.4-10.2); CREATININE, SERUM 3.11 mg/dL (0.57-1.11); POTASSIUM 4.8 mmol/L (3.5-5.1)
[2019-01-31 05:24] LABS: % IRON SATURATION 7 % (15-50); IRON 14 ug/dL (50-170); TOTAL IRON BINDING CAPACITY 189 ug/dL (261-478); TRANSFERRIN 135 mg/dL (180-382)
[2019-01-31] MEDS: LEVOTHYROXINE SODIUM 50 MCG TAB PO SCH (06:17)
[2019-01-31] MEDS: METRONIDAZOLE 500MG/NS 100ML 100 ML IV SCH ×3 (06:17→21:03)
[2019-01-31] MEDS: INSULIN LISPRO 100 UNIT/1 ML 3ML VIAL SQ SCH ×7 (07:30→20:32)
[2019-01-31] MEDS ORDERED: VANCOMYCIN 1GM/NS 250 ML 250 ML IV SCH (09:00)
[2019-01-31] MEDS: CLONIDINE HCL 0.2 MG TAB PO SCH ×3 (09:14→21:03)
[2019-01-31] MEDS: METOPROLOL TARTRATE 50 MG TAB PO SCH ×2 (09:14→19:52)
[2019-01-31 10:07] LABS: FOLATE 6.6 ng/mL (7.0-15.4)
[2019-01-31] MEDS: INSULIN GLARGINE 100 UNITS/ML VIAL SQ SCH (10:25)
--- NOTE | 2019-01-31 10:29 | NUR ---
Reported vancomycin trough critical and creatinine 3.11 to ID spoke with Ayad RUBALCAVA, received orders to change vancomycin 1 gram to q 48 hours.
[2019-01-31] MEDS: SODIUM CHLORIDE 0.9% 1000ML 1,000 ML IV SCH ×2 (12:00→15:59)
[2019-01-31] MEDS: CEFTRIAXONE SOD 2 GM/NS 100 ML 100 ML IV SCH (12:04)
[2019-01-31] MEDS ORDERED: MAGNESIUM HYDROXIDE 30 ML UDC PO PRN (13:45)
--- NOTE | 2019-01-31 20:20 | NUR ---
Handoff report to oncoming nurse, patient in bed verbalizing needs, no s/s of distress.
[2019-01-31] MEDS: SIMVASTATIN 20 MG TAB PO SCH (21:03)
[2019-02-01 04:00] VITALS: BP 133/60
[2019-02-01 04:49] LABS: BASOPHILS % 0.4 % (0.0-1.0); EOSINOPHILS # (AUTO) 0.5 (0.0-0.4); EOSINOPHILS % 7.4 % (0.0-6.0); HEMATOCRIT 28.3 % (34.2-44.1); HEMOGLOBIN 8.5 g/dL (12.0-16.0); LYMPHOCYTES # (AUTO) 0.9 (1.0-3.2); LYMPHOCYTES % 13.1 % (18.0-39.1); MEAN CORPUSCULAR HEMOGLOBIN 25.7 pg (28-32); MEAN CORPUSCULAR VOLUME 85.5 fL (81-99); MONOCYTES # (AUTO) 0.7 (0.2-0.8); MONOCYTES % 9.7 % (4.4-11.3); NEUTROPHILS # (AUTO) 4.8 (2.1-6.9); NEUTROPHILS % 68.7 % (38.7-80.0); PLATELET COUNT 333 x10e3/uL (140-360); RED BLOOD COUNT 3.31 x10e6/uL (3.6-5.1); RED CELL DISTRIBUTION WIDTH 16.2 % (11.7-14.4)
[2019-02-01] MEDS: SODIUM CHLORIDE 0.9% 1000ML 1,000 ML IV SCH ×2 (05:00→20:47)
[2019-02-01 05:09] LABS: ANION GAP 12.1 mmol/L (8-16); CALCIUM 8.6 mg/dL (8.4-10.2); CREATININE, SERUM 3.18 mg/dL (0.57-1.11); POTASSIUM 4.1 mmol/L (3.5-5.1)
[2019-02-01] MEDS: METRONIDAZOLE 500MG/NS 100ML 100 ML IV SCH (05:27)
[2019-02-01] MEDS: LEVOTHYROXINE SODIUM 50 MCG TAB PO SCH (05:27)
[2019-02-01] MEDS: INSULIN LISPRO 100 UNIT/1 ML 3ML VIAL SQ SCH ×7 (07:30→19:58)
[2019-02-01 07:52] VITALS: BP 136/60
[2019-02-01] MEDS: INSULIN GLARGINE 100 UNITS/ML VIAL SQ SCH (08:32)
[2019-02-01] MEDS: METOPROLOL TARTRATE 50 MG TAB PO SCH ×2 (08:32→16:35)
[2019-02-01] MEDS: CLONIDINE HCL 0.2 MG TAB PO SCH ×3 (08:32→20:47)
[2019-02-01] MEDS: ACETAMINOPHEN 325 MG TAB PO PRN (08:38)
[2019-02-01 08:39] VITALS: BP 136/60
[2019-02-01] MEDS ORDERED: CEFAZOLIN SOD 1 GM VIAL IV SCH (09:00)
--- NOTE | 2019-02-01 09:05 | NUR ---
vanc trough 13.0. Per Hossein RUBALCAVA. vancomycin will not be continued
[2019-02-01] MEDS: CEFAZOLIN SOD 1 GM/NS 50ML 50 ML IV SCH (10:00)
[2019-02-01 11:22] VITALS: BP 140/63
--- NOTE | 2019-02-01 13:00 | NUR ---
Taken off 1L NC . Patient's SPO2 96% on RA. Denies SOB.
[2019-02-01 15:14] VITALS: BP 138/62
--- NOTE | 2019-02-01 19:15 | NUR ---
Report given to oncoming nurse of patient's status. Resting in bed, side rails upx2, call light within reach. AAOX3 to time, person, place. Respirations even and unlabored. Will continue to monitor.
[2019-02-01 20:00] VITALS: BP 129/59
[2019-02-01] MEDS: SIMVASTATIN 20 MG TAB PO SCH (20:47)
[2019-02-02] VITALS (9 sets, daily range): BP systolic 114–229; BP diastolic 56–102
[2019-02-02] MEDS: ACETAMINOPHEN 325 MG TAB PO PRN ×2 (03:15→11:30)
[2019-02-02] MEDS: LEVOTHYROXINE SODIUM 50 MCG TAB PO SCH (06:15)
[2019-02-02] MEDS: INSULIN LISPRO 100 UNIT/1 ML 3ML VIAL SQ SCH ×7 (07:30→20:08)
[2019-02-02] MEDS ORDERED: SODIUM CHLORIDE 0.9% 250ML 0 ML ONE (07:52)
[2019-02-02] MEDS: CLONIDINE HCL 0.2 MG TAB PO SCH ×3 (08:00→20:10)
[2019-02-02] MEDS: METOPROLOL TARTRATE 50 MG TAB PO SCH ×2 (08:00→15:45)
[2019-02-02] MEDS: CEFAZOLIN SOD 1 GM/NS 50ML 50 ML IV SCH (08:00)
[2019-02-02] MEDS ORDERED: INSULIN GLARGINE 100 UNITS/ML VIAL SQ SCH (09:00)
[2019-02-02] MEDS: HYDRALAZINE HCL 20 MG/ML VIAL IV PRN (11:30)
--- NOTE | 2019-02-02 11:30 | NUR ---
BP 229/102. AAOX4 to time,person, place, situation. c/o headache. PRN hydralazine and tylenol given. Will continue to monitor.
--- NOTE | 2019-02-02 12:16 | NUR ---
BP118/58. Denies pain.
[2019-02-02] MEDS: SODIUM CHLORIDE 0.9% 1000ML 1,000 ML IV SCH (12:19)
--- NOTE | 2019-02-02 12:55 | NUR ---
DISCUSSED IN BARRIER ROUNDS PT NEED 10 DAYS OF ANCEF IV, FAXED FACE SHEET TO [facility] AT OFFICE SHE IS GIVING TO GISELE AND WILL LET CM TEAM KNOW THE OUTCOME.
[2019-02-02] MEDS: DEXTROSE 5%/0.45% SOD CHL 1,000 ML IV SCH (15:45)
[2019-02-02] MEDS: NIFEDIPINE CR 30 MG TAB PO SCH ×2 (15:45→20:10)
[2019-02-02] MEDS ORDERED: FUROSEMIDE INJ 10 MG/ML 4 ML VIAL IV ONE (16:00)
--- NOTE | 2019-02-02 19:05 | NUR ---
Report given to oncoming nurse of patient's status. Sitting on recliner. No s/s of acute distress noted.
[2019-02-02] MEDS: SIMVASTATIN 20 MG TAB PO SCH (20:10)
[2019-02-03] VITALS (9 sets, daily range): BP systolic 136–204; BP diastolic 65–84
[2019-02-03] MEDS: LEVOTHYROXINE SODIUM 50 MCG TAB PO SCH (05:20)
[2019-02-03] MEDS: DEXTROSE 5%/0.45% SOD CHL 1,000 ML IV SCH (05:20)
[2019-02-03 05:31] LABS: ALBUMIN 1.8 g/dL (3.5-5.0); ALBUMIN/GLOBULIN RATIO 0.4 (0.8-2.0); CREATININE, SERUM 2.09 mg/dL (0.57-1.11)
--- NOTE | 2019-02-03 07:00 | NUR ---
BEDSIDE SHIFT REPORT RECEIVED FROM THE PACKAGE SEALER RN. PT DENIES NEEDS AT THIS TIME.
[2019-02-03] MEDS: INSULIN LISPRO 100 UNIT/1 ML 3ML VIAL SQ SCH ×7 (07:30→20:45)
[2019-02-03] MEDS: CLONIDINE HCL 0.2 MG TAB PO SCH ×3 (08:00→20:31)
[2019-02-03] MEDS: NIFEDIPINE CR 30 MG TAB PO SCH ×2 (08:24→20:31)
[2019-02-03] MEDS: METOPROLOL TARTRATE 50 MG TAB PO SCH ×2 (08:24→17:16)
[2019-02-03] MEDS: CEFAZOLIN SOD 1 GM/NS 50ML 50 ML IV SCH (08:27)
[2019-02-03] MEDS: INSULIN GLARGINE 100 UNITS/ML VIAL SQ SCH (09:00)
--- NOTE | 2019-02-03 11:29 | NUR ---
PAGED DR. COBOS PER AMALIA RUBALCAVA REGARDING PICC LINE PLACEMENT. NO NEW ORDERS RECEIVED.
[2019-02-03] MEDS: HYDRALAZINE HCL 20 MG/ML VIAL IV PRN ×3 (12:34→19:38)
--- NOTE | 2019-02-03 12:59 | NUR ---
OPERATIONS MANAGER PICC LINE PLACEMENT PER . Addendum: 02/04/19 at 1006 by Aminata Carranza RN NO PICC LINE PER DR. COBOS
[2019-02-03] MEDS: BUMETANIDE INJ 0.25MG/ML 4ML VIAL IV SCH ×2 (13:19→22:00)
--- NOTE | 2019-02-03 15:05 | NUR ---
CM SPOKE TO PATIENT AND PATIENT FAMILY AT BEDSIDE REGARDING DISCHARGE PLAN. PATIENT AWARE SHE WILL NEED HOME IV ABX TREATMENTS. PATIENT GIVEN CHOICE. PATIENT CHOSE [facility] AT THIS TIME. CHOICE LETTER SIGNED AND PLACED IN CHART. CLINICAL SENT TO [facility]. [facility] (P) [phone] (F) [phone] C, SPOKE TO PATIENT INSURANCE REP. ALEKS, STATES SHE WILL NEED TO DO MORE RESEARCH TO VERIFY INSURANCE BENEFITS. PENDING RETURN CALL. ALEKS: [phone]
[2019-02-03] MEDS: SODIUM BICARBONATE 650 MG TAB PO SCH ×2 (15:49→20:31)
--- NOTE | 2019-02-03 19:00 | NUR ---
BEDSIDE SHIFT REPORT GIVEN TO THE DIRECTOR OF CAMPUS RECREATION RN. PT DENIED FURTHER NEEDS.
[2019-02-03] MEDS: SIMVASTATIN 20 MG TAB PO SCH (20:31)
--- NOTE | 2019-02-03 23:45 | NUR ---
PATIENT DIAPHORETIC, BG 56. PATIENT ALERT, PROVIDED 360ML OF JUICE. WILL RECHECK BG.
[2019-02-04] VITALS (8 sets, daily range): BP systolic 144–194; BP diastolic 64–87
--- NOTE | 2019-02-04 00:45 | NUR ---
RECHECKED BG. BG 110.
[2019-02-04] MEDS: BUMETANIDE INJ 0.25MG/ML 4ML VIAL IV SCH ×3 (05:55→21:58)
[2019-02-04] MEDS: HYDRALAZINE HCL 20 MG/ML VIAL IV PRN ×2 (05:55→23:25)
[2019-02-04] MEDS: LEVOTHYROXINE SODIUM 50 MCG TAB PO SCH (05:55)
--- NOTE | 2019-02-04 07:00 | NUR ---
BEDSIDE SHIFT REPORT RECEIVED FROM THE BALLING MACHINE OPERATOR RN. PT DENIES NEEDS AT THIS TIME.
[2019-02-04] MEDS: INSULIN LISPRO 100 UNIT/1 ML 3ML VIAL SQ SCH ×7 (07:30→21:59)
[2019-02-04] MEDS: CLONIDINE HCL 0.2 MG TAB PO SCH ×3 (08:39→21:58)
[2019-02-04] MEDS: METOPROLOL TARTRATE 50 MG TAB PO SCH ×2 (08:40→17:30)
[2019-02-04] MEDS: SODIUM BICARBONATE 650 MG TAB PO SCH ×3 (08:40→21:58)
[2019-02-04] MEDS: NIFEDIPINE CR 30 MG TAB PO SCH ×2 (08:40→21:58)
[2019-02-04] MEDS: CEFAZOLIN SOD 1 GM/NS 50ML 50 ML IV SCH (08:43)
[2019-02-04] MEDS: INSULIN GLARGINE 100 UNITS/ML VIAL SQ SCH (09:30)
--- NOTE | 2019-02-04 10:00 | NUR ---
NEW CENTRAL LINE (TUNNELED) ORDER BY AMALIA RUBALCAVA.
--- NOTE | 2019-02-04 11:00 | NUR ---
PAGED DR DR ISABEL AND REPORTED PT MIDNIGHT LOW BLOOD SUGAR. NO NEW ORDERS RECEIVED.
--- NOTE | 2019-02-04 13:19 | NUR ---
PATIENT INSURANCE CURRENTLY REVIEWING ITEMIZED RECEIPT OF PATIENT NEEDS AT DISCHARGE: HOME HEALTH AND IV ABX INFUSION THERAPY. ONCE PATIENT INSURANCE APPROVES COSTS AND IV ABX ARE SET UP THEN PATIENT CAN DISCHARGE. BEDSIDE RN JAMAL NOTIFIED AND SITUATION DISCUSSED IN BARRIER ROUNDS.
--- NOTE | 2019-02-04 13:45 | NUR ---
DR. COBOS AT BEDSIDE TO SEE THE PT. RACHNA HERRERA APPLIED PER THE INSTRUCTION FROM THE
--- NOTE | 2019-02-04 14:25 | NUR ---
DR. ISABEL AT BEDSIDE TO SEE THE PT. NEW ORDERS RECEIVED TO CHANGE THE INSULIN DOSAGE.
[2019-02-04] MEDS ORDERED: SODIUM CHLORIDE 0.9% 500ML 500 ML ONE (14:32)
[2019-02-04] MEDS ORDERED: LIDOCAINE HCL 1% LOCAL INJ 20 ML VIAL ONE (14:32)
--- NOTE | 2019-02-04 15:00 | NUR ---
PT BLOOD SUGAR IS 58. ORANGE JUICE GIVEN. PT DENIES NEEDS AT THIS TIME. WILL RECHECK THE BLOOD SUGAR.
--- NOTE | 2019-02-04 15:22 | NUR ---
RECHECKED BLOOD GLUCOSE. 76 REPORTED. PT IS AAOX4. NO DISTRESS NOTED. DENIES NEEDS AT THIS TIME.
--- NOTE | 2019-02-04 15:30 | NUR ---
PT OFF UNIT FOR PROCEDURE IN SAFE CONDITION.
--- NOTE | 2019-02-04 16:48 | NUR ---
PT BACK TO UNIT AFTER PROCEDURE. DENIES NEEDS AT THIS TIME.
--- NOTE | 2019-02-04 16:50 | NUR ---
PAGED DR ISABEL AND REPORTED PT BLOOD GLUCOSE LEVELS. PT IS NOT EATING. DO NOT ADMINISTER INSULIN FOR THIS EVENING AT 1630 PER THE
--- NOTE | 2019-02-04 17:00 | NUR ---
RECHECKED PT BLOOD GLUCOSE.118 NOTED.
--- NOTE | 2019-02-04 17:00 | NUR ---
CENTRAL LINE OKAY TO USE PER RADIOLOGY
--- NOTE | 2019-02-04 19:00 | NUR ---
Pt visited in room during nursing rounds. Patient alert and oriented x3. Ambulatory via rolling walker with standby assist. Right subclavian IV (new) in place. Pt resting in bed. Call drake within reach. Will monitor closely.
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
[2019-02-04] MEDS ORDERED: MORPHINE SULFATE 2 MG/ML SYR 1ML IV PRN (21:45)
[2019-02-04] MEDS: SIMVASTATIN 20 MG TAB PO SCH (21:58)
[2019-02-05] VITALS: BP 199/87
[2019-02-05 04:00] VITALS: BP_SYST 177; BP_SYST 184; BP_DIAS 76; BP_DIAS 78
[2019-02-05] MEDS: HYDRALAZINE HCL 20 MG/ML VIAL IV PRN (04:36)
[2019-02-05] MEDS: CLONIDINE HCL 0.2 MG TAB PO SCH ×2 (04:36→15:49)
[2019-02-05] MEDS: METOPROLOL TARTRATE 50 MG TAB PO SCH ×2 (04:36→17:32)
[2019-02-05] MEDS: LEVOTHYROXINE SODIUM 50 MCG TAB PO SCH (06:32)
[2019-02-05] MEDS: BUMETANIDE INJ 0.25MG/ML 4ML VIAL IV SCH (06:32)
[2019-02-05] MEDS: INSULIN LISPRO 100 UNIT/1 ML 3ML VIAL SQ SCH ×6 (07:30→17:30)
[2019-02-05 07:48] VITALS: BP 155/72
[2019-02-05] MEDS ORDERED: INSULIN GLARGINE 100 UNITS/ML VIAL SQ SCH (09:00)
[2019-02-05] MEDS: CEFAZOLIN SOD 1 GM/NS 50ML 50 ML IV SCH (09:52)
[2019-02-05] MEDS: NIFEDIPINE CR 30 MG TAB PO SCH (09:53)
[2019-02-05] MEDS: SODIUM BICARBONATE 650 MG TAB PO SCH ×2 (09:53→15:49)
[2019-02-05 10:21] VITALS: BP 155/72
[2019-02-05] MEDS ORDERED: SODIUM BICARBO650 MG PO (11:08)
[2019-02-05] MEDS ORDERED: BUMETANIDE0.25 MG/1 PO (11:08)
[2019-02-05] MEDS ORDERED: NIFEDIPINE ER30 M1 PO (11:08)
[2019-02-05] MEDS ORDERED: Insulin Lispro SQ (11:08)
--- NOTE | 2019-02-05 11:21 | NUR ---
RECEIVED TELEPHONE CALL FROM JOSE LUIS RUBALCAVA FOR DR. STEPHENS, MR LACEY STATED THAT THE PATIENT DOES NOT NEED A PRESCRIPTION, PATIENT WILL BE RECEIVING HER ANTIBIOTICS IN THE MD's OFFICE, CALL THE OFFICE AND GET AN APPOINTMENT PRIOR TO DISCHARGE, CALLED DR. STEPHENS'S OFFICE, ANSWERING MACHINE PICKED UP, MESSAGE LEFT REQUESTING CALL BACK.
[2019-02-05] MEDS ORDERED: ONDANSETRON HCL 4 MG ORAL DISINTEGRATING TAB PO PRN (11:45)
[2019-02-05 12:05] VITALS: BP 144/64
--- NOTE | 2019-02-05 12:23 | NUR ---
CALLED [phone], SPOKE TO Esther STUART. HE STATED THAT HE WILL BE HER IN ABOUT AN HOUR TO SEE THE PATIENT AND GIVE HER THE PRESCIPTIONS THEN SHE CAN GO HOME.
--- NOTE | 2019-02-05 14:44 | NUR ---
DISCHARGE DISPOSITION PATIENT DISCHARGING HOME WITH IV ABX SET UP AT DR. STEPHENS'S OFFICE APPOINTMENT INFORMATION: WEDNESDAY FEBRUARY 06, 2019 TIME: 11:00 AM LOCATION: [address] [place] [id number] (p) [phone] PATIENT STATES SHE REFUSES HOME HEALTH AT THIS TIME. SHE IS NOT HOME BOUND AND SHE AMBULATES WELL AT THIS TIME. PENDING DR. ISABEL TO GIVE INSULIN PRESCRIPTIONS FOR DISCHARGE. SHERRI SPOKE TO BEDSIDE NURSE; BEDSIDE RN ALDEN FITZPATRICK
[2019-02-05 15:52] VITALS: BP 195/63
[2019-02-05] MEDS ORDERED: SIMVASTATIN 40 MG TAB PO SCH ×2 (21:00)
--- NOTE | 2019-02-06 05:26 | Consultation ---
DATE OF CONSULTATION: 02/05/2019 REASON FOR CONSULTATION: Stat consultation called for hyponatremia. HISTORY OF PRESENT ILLNESS: The patient was a direct admit from an outlying ER. As soon as she came to the floor, she was initially a bit confused, but talking and following commands according to the nurse, and then she had a grand mal seizure when I arrived in the room, rapid response was already called and patient had clenched her teeth, was not responding to any verbal stimuli. She was quite agitated and moving around. Couple of nurses were holding down her hands. Family was at bedside, who tells me that the patient had a very similar event which brought her to her 1st admission here, in which she developed severe nausea, vomiting, as well as diarrhea, which lasted all light after she ate food. She had no other complaints. In the morning, she was "incoherent" by her son-in-law, whom she lives with and they brought her to the local emergency room, where she was found to have a serum sodium of 122. The patient is not on any diuretics. She does not drink or smoke. She does have hypothyroidism and takes thyroid replacement medication. Currently, the blood sugar was found to be 242 here. Blood tests were sent and they came back by the time I got to dictation. Serum sodium was 119 with a DICTATION ENDS HERE MD PARI Lambert/ISRAEL /[id number]
--- NOTE | 2019-02-06 08:26 | Diagnostic Imaging Report ---
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 IMPRESSION: Insertion of right-sided single-lumen tunneled Proline catheter, with tip in the expected location of the cavoatrial junction. Plan: The catheter may be used immediately. PROCEDURE SUMMARY: - Venous access with ultrasound guidance - Tunneled central venous catheter insertion with fluoroscopic guidance - Additional procedure(s): None PROCEDURE DETAILS: Pre-procedure Consent: Informed consent for the procedure including risks, benefits and alternatives was obtained and time-out was performed prior to the procedure. Preparation (MIPS): The site was prepared and draped using all elements of maximal sterile barrier technique including sterile gloves, sterile gown, cap, mask, large sterile sheet, sterile ultrasound probe cover, hand hygiene and cutaneous antisepsis with 2% chlorhexidine. Medical reason for site preparation exception (MIPS): Not applicable Anesthesia/sedation Level of anesthesia/sedation: No sedation Anesthesia/sedation administered by: Independent trained observer under attending supervision with continuous monitoring of the patient?s level of consciousness and physiologic status Access Local anesthesia was administered. The vessel was sonographically evaluated and determined to be patent. Real time ultrasound was used to visualize needle entry into the vessel and a permanent image was stored. Vein accessed: Internal jugular vein Access technique: Micropuncture set with 21 gauge needle Catheter placement An incision was made near the venous access site and the catheter was tunneled subcutaneously to the venous access site and trimmed to appropriate length. The catheter was advanced via a peel-away sheath into the vein under fluoroscopic guidance. Catheter tip location was fluoroscopically verified and a permanent image was stored. Catheter placed: Proline Catheter size (German): 5 Catheter flush: Normal saline Closure A sterile dressing was applied. Access site closure technique: Tissue adhesive Catheter securement technique: Non-absorbable suture Contrast Contrast agent: None Contrast volume (mL): 0 Radiation Dose Fluoroscopy time (minutes): 0.5 Reference air kerma (mGy): 6.38 Kerma area product (Gy.cm2): 1.63 Additional Details Additional description of procedure: None Equipment details: None Specimens removed: None Estimated blood loss (mL): Less than 10 Standardized report: [id number] Attestation Signer name: Amaya Castrejon MD I attest that I was present for the entire procedure. I reviewed the stored images and agree with the report as written. Signed by: Amaya Castrejon MD on 02/06/2019 8:23 AM
--- NOTE | 2019-02-07 05:07 | Discharge Summary ---
HISTORY: Ms. Garay is a complex and unfortunate 64-year-old woman, obese and diabetic, who presented to the emergency room on the with a complaint of facial pain and swelling. HOSPITAL COURSE: It was noted that she actually fallen down five days earlier and struck her face on the floor when her coworkers checked fingerstick blood sugar and found it to be 498. She did not initially seek hospital treatment. 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 However, over the next few days, her face become more swollen and painful and presented in the emergency room. Initial evaluation suggested possible facial edema, cellulitis, and possible abscess. She was seen in consultation by Dr. Rk Medrano, who recommended broad-spectrum antibiotics. She was seen by Dr. Carver and her initial serum creatinine was 2.[address] Montes De Oca was consulted for diabetic management and Dr. Garg for renal management. Her creatinine actually worsened with peak of 3.18. However, antibiotics were changed and there was improvement. On the , creatinine improved to 2.0. Her facial edema improved. By the , she had a central line placed for outpatient antibiotics and was discharged home to follow up with Dr. Carver for regular antibiotics, total of 4 weeks and an insulin regimen was arranged by Dr. Jason Montes De Oca. She will follow up with him for diabetic management and Dr. Garg for further management of renal insufficiency. DISCHARGE DIAGNOSES: 1. Facial edema, cellulitis, abscess. 2. Uncontrolled type 2 adult onset diabetes. 3. Renal insufficiency. 4. Morbid obesity. MD ALEJANDRO Mancilla/MODL /[id number] cc: MD Maxine Davidson MD Kuldip K Kaul, MD Salman A Khan, MD Ramon A Pineda, MD
== END 2019-02-05 18:27 | disposition home or self-care (01) | DRG 871 ==
LOC: ER 14:55 → ERHOLD 22:29 → IMCU 23:59 → MED/SURG2 01-30 17:54
PROVIDERS: ADMIT Internal Medicine Cardiovascular Disease; ATTEND Internal Medicine Cardiovascular Disease
PROC: 0JH63XZ Insertion of Tunneled Vascular Access Device into Chest Subcutaneous Tissue and Fascia, Percutaneous Approach (ICD-10-PCS; principal; 2019-02-04)
PROC: 02HV33Z Insertion of Infusion Device into Superior Vena Cava, Percutaneous Approach (ICD-10-PCS; 2019-02-04)
DX: A41.9 Sepsis, unspecified organism (principal); N17.0 Acute kidney failure with tubular necrosis; Z68.41 Body mass index [BMI] 40.0-44.9, adult; N17.9 Acute kidney failure, unspecified; K12.2 Cellulitis and abscess of mouth; S01.511A Laceration without foreign body of lip, initial encounter; G40.409 Other generalized epilepsy and epileptic syndromes, not intractable, without status epilepticus; N18.3 Chronic kidney disease, stage 3 (moderate); E11.9 Type 2 diabetes mellitus without complications; I10 Essential (primary) hypertension; A49.01 Methicillin susceptible Staphylococcus aureus infection, unspecified site; K13.79 Other lesions of oral mucosa; K13.0 Diseases of lips; E66.01 Morbid (severe) obesity due to excess calories; B95.61 Methicillin susceptible Staphylococcus aureus infection as the cause of diseases classified elsewhere; E11.22 Type 2 diabetes mellitus with diabetic chronic kidney disease; I12.9 Hypertensive chronic kidney disease with stage 1 through stage 4 chronic kidney disease, or unspecified chronic kidney disease; D63.1 Anemia in chronic kidney disease; E11.42 Type 2 diabetes mellitus with diabetic polyneuropathy; Z79.4 Long term (current) use of insulin; E03.9 Hypothyroidism, unspecified; Z89.421 Acquired absence of other right toe(s); E11.65 Type 2 diabetes mellitus with hyperglycemia
CPT/HCPCS: 36415; 36558; 70450; 70486; 71045; 72125; 74470; 76770; 76937; 77001; 80048; 80053; 80061; 80202; 81001; 82550; 82553; 82570; 82607; 82746; 82948; 83036; 83540; 83605; 83735; 83880; 84156; 84439; 84443; 84466; 84484; 84550; 85025; 85045; 85610; 85730; 87040; 87071; 87086; 87186; 87205; 93005; 93306; 96360; 96361; 96372; 96374; 96376; 97139; 99284; J0360; J0690; J0696; J1815; J1817; J1940; J2001; J2270; J2405; J2543; J3370; J7030; J7040; J7050

== ENCOUNTER 2019-04-06 11:05 | Emergency (ER) | payer OTHER ==
[~2019-04-06] VITALS: Ht 154.9 cm; Wt 96.2 kg
[~2019-04-06 11:05] MED LIST changes: +BUMETANIDE0.25 MG/1 PO; +CLONIDINE HCL0.2 MG PO; +GABAPENTIN400 MG PO; +Insulin Lispro SQ; +LEVOTHYROXINE50 MCG PO; +METOPROLOL TART50 MG PO; +SODIUM BICARBO650 MG PO
--- NOTE | 2019-04-06 11:55 | NUR ---
TUAN AGUILLON IN TRIAGE FOR PT EVAL.
[2019-04-06] MEDS ORDERED: SODIUM CHLORIDE 0.9% 1000ML 1,000 ML IV STA (12:00)
[2019-04-06 12:24] LABS: BASOPHILS % 0.1 % (0.0-1.0); EOSINOPHILS # (AUTO) 0.3 (0.0-0.4); EOSINOPHILS % 4.4 % (0.0-6.0); HEMATOCRIT 32.2 % (34.2-44.1); HEMOGLOBIN 9.8 g/dL (12.0-16.0); LYMPHOCYTES # (AUTO) 1.1 (1.0-3.2); LYMPHOCYTES % 14.6 % (18.0-39.1); MEAN CORPUSCULAR HEMOGLOBIN 25.9 pg (28-32); MEAN CORPUSCULAR HGB CONC 30.4 g/dL (31-35); MEAN CORPUSCULAR VOLUME 85.2 fL (81-99); MONOCYTES # (AUTO) 0.3 (0.2-0.8); MONOCYTES % 4.2 % (4.4-11.3); NEUTROPHILS # (AUTO) 5.9 (2.1-6.9); NEUTROPHILS % 76.3 % (38.7-80.0); PLATELET COUNT 278 x10e3/uL (140-360); RED BLOOD COUNT 3.78 x10e6/uL (3.6-5.1); RED CELL DISTRIBUTION WIDTH 15.9 % (11.7-14.4)
[2019-04-06] MEDS ORDERED: ONDANSETRON HCL INJ 2MG/ML 2ML 2 MG/ML VIAL IV ONE (12:30)
[2019-04-06 12:42] LABS: ALBUMIN/GLOBULIN RATIO 0.5 (0.8-2.0); ANION GAP 10.4 mmol/L (8-16); CALCIUM 8.5 mg/dL (8.4-10.2); CREATININE, SERUM 2.29 mg/dL (0.57-1.11); POTASSIUM 4.4 mmol/L (3.5-5.1)
[2019-04-06 12:45] LABS: INR 1.03
[2019-04-06 12:46] LABS: PARTIAL THROMBOPLASTIN TIME 31.6 seconds (23.8-35.5)
[2019-04-06 12:51] LABS: CREATINE KINASE MB 0.6 ng/mL (0-5.0)
--- NOTE | 2019-04-06 13:12 | Diagnostic Imaging Report ---
EXAMINATION: CHEST SINGLE (PORTABLE) INDICATION: Weakness, dizziness COMPARISON: None FINDINGS: LINES/TUBES:Interval removal of right IJ tunneled central venous catheter. EKG leads overlie the chest. LUNGS:The lungs are well-inflated. No focal consolidation or pulmonary edema. PLEURA:No pleural effusion or pneumothorax. MEDIASTINUM:The cardiomediastinal silhouette appears normal in size and shape. BONES/SOFT TISSUES:No acute osseous injury. ABDOMEN:No free air under the diaphragm. IMPRESSION: No focal pneumonia or pulmonary edema. Signed by: Amaya Castrejon MD on 04/06/2019 1:08 PM
[2019-04-06 14:21] LABS: BILIRUBIN,URINE NEGATIVE (NEGATIVE); CLARITY,URINE CLEAR (CLEAR); COLOR,URINE YELLOW (YELLOW); KETONES,URINE NEGATIVE (NEGATIVE); LEUKOCYTE ESTERASE ,URINE NEGATIVE (NEGATIVE); NITRITE,URINE NEGATIVE (NEGATIVE); URINE UROBILINOGEN 0.2 mg/dL (0.2 - 1)
[2019-04-06 14:22] LABS: PROTEIN,URINE DIPSTICK 3+ (NEGATIVE)
[2019-04-06 14:35] LABS: BACTERIA,URINE FEW /HPF; EPITHELIAL CELLS,URINE FEW /LPF; RBC,URINE 0-5 /HPF (0-5)
[2019-04-06 16:05] VITALS: BP 149/88
== END 2019-04-06 16:15 | disposition home or self-care (01) ==
LOC: ER 11:05
DX: E86.0 Dehydration (principal); R42 Dizziness and giddiness; R53.1 Weakness; R11.2 Nausea with vomiting, unspecified; I10 Essential (primary) hypertension; Z83.3 Family history of diabetes mellitus; Z82.49 Family history of ischemic heart disease and other diseases of the circulatory system
CPT/HCPCS: 36415; 71045; 80053; 81001; 82150; 82550; 82553; 83690; 84484; 85025; 85610; 85730; 93005; 99284; J2405; J7030